=== PATIENT | female | born 1980 | race African-American/Black ===

== ENCOUNTER 2016-06-03 19:02 | Observation (INO) ==
[2016-06-03] MEDS ORDERED: NITROGLYCERIN 2% OINT 1 INCH/GM PACK TOP STA (20:30)
[2016-06-03] MEDS ORDERED: MORPHINE 2 MG/1 ML SYRINGE IV STA (20:30)
[2016-06-03] MEDS ORDERED: ASPIRIN 325 MG TABLET PO STA (20:30)
[2016-06-03] MEDS ORDERED: ALUM/MAG/SIMETH/LIDO VISC 1:1 30 ML BOTTLE PO STA (20:30)
[2016-06-03] MEDS ORDERED: ONDANSETRON 4 MG/2 ML VIAL IV STA (20:30)
[2016-06-03] MEDS ORDERED: SODIUM CHLORIDE 0.9% 500 ML IV STA (20:30)
[2016-06-03] MEDS ORDERED: ASPIRIN 325 MG TABLET ONE (20:39)
[2016-06-03] MEDS ORDERED: ALUM/MAG/SIMETH/LIDO VISC 1:1 30 ML BOTTLE PO ONE (20:39)
[2016-06-03] MEDS ORDERED: MORPHINE 2 MG/1 ML SYRINGE ONE (20:39)
[2016-06-03] MEDS ORDERED: NITROGLYCERIN 2% OINT 1 INCH/GM PACK TOP ONE (20:39)
[2016-06-03] MEDS ORDERED: ONDANSETRON 4 MG/2 ML VIAL ONE (20:39)
--- NOTE | 2016-06-03 21:14 | Emergency Department Note ---
Carleen Herron [place], am scribing for, and in the presence of, Ashish Verma MD 20:17. Bayron Herron Charles R, MD, personally performed the services described in this documentation, ascribed by Ben Durant in my presence, and it is both accurate and complete . Arrival - Arrival Chief Complaint: Non-Specific Stated Complaint: chest pains ED Nursing Triage Note: pt to room c/o reproducable chest wall pain in right side of chest for approx 2 weeks. pt denies going to her regular dr. pt denies injury, Mode of Arrival: Ambulatory Limitations: No Limitations Source: Patient Time Seen by Provider: 06/03/16 19:57 - History of Present Illness HPI Narrative: Pt is a 35 y/o black female presenting to the ED with c/o bilateral reproducible chest wall tenderness and SOB that onset approximately two week ago. Pt states heart disease runs in her family with her mother's first TX at age 39. She states the right side of her chest is worse than the left and she describes the pain as a heaviness. No one movement exacerbates or relieves the discomfort. Pt denies a PMHx and daily medications. She has not seen her PCP. Pt denies fever, chills, nausea, vomiting, diarrhea, abdominal pain, back pain, MONTERO, vertigo, syncope, and dysuria. Pt has a surgical hx of tubal ligation. Consistency: constant Severity: moderate Quality: other (heaviness ) Allergies/Adverse Reactions: Allergies Allergy/AdvReac Type Severity Reaction Status Date / Time No Known Allergies Allergy Unverified 06/03/16 19:10 Home Medications: Home Medications Medication Instructions Recorded Confirmed Type No Known Home Medications [No 06/03/16 06/03/16 History Known Home Medications] Review of System - Review of System 12 point system: reviewed and no additional remarkable complaints except as stated - Review of System Constitutional: Absent: chills, fever, weakness Eyes: Absent: vision change Head/Ears/Nose/Throat: Absent: earache, nasal drainage Respiratory: Absent: cough, respiratory distress, wheezing Cardiovascular: Present: chest pain (bilateral chest wall tenderness; right worse than left ), dyspnea on exertion. Absent: syncope Gastrointestinal: Absent: abdominal pain, nausea, vomiting Genitourinary female: Absent: dysuria Musculoskeletal: Absent: arm pain, back pain, leg pain, neck pain Neurological: Absent: headache, weakness, numbness, confusion, abnormal gait, vertigo Psychiatric: Absent: anxiety Endocrine: Absent: fatigue Hematological/Lymphatic: Absent: easy bleeding Allergic/Immunologic: Absent: facial swelling Medical,Surgical,& Family Hx - Surgical History Reproductive Surgeries: Surgical HX of;: Tubal Ligation (2007) - Social History Smoking Status: Never smoker Frequency of Alcohol Use: Occasionally Type of Drug Use: None Exam Vital Signs: Vital Signs Temperature 99.4 F 06/03/16 19:06 Pulse Rate 84 06/03/16 19:06 Respiratory Rate 16 06/03/16 20:22 Blood Pressure 120/82 06/03/16 19:06 O2 Sat by Pulse Oximetry 99 06/03/16 19:06 - General General appearance: alert, in no apparent distress - Head Head exam: Present: atraumatic, normocephalic, normal inspection - Eye Eye exam: Present: normal appearance, PERRL, EOMI - ENT ENT exam: Present: normal exam, normal oropharynx, mucous membranes moist, TM's normal bilaterally, normal external ear exam - Neck Neck exam: Present: normal inspection, full ROM, trachea midline. Absent: tenderness - Chest Chest inspection: Present: symmetric chest wall rise, tenderness (reproducible right sided chest wall tenderness). Absent: normal inspection - Respiratory Respiratory exam: Present: normal lung sounds bilaterally, other (dyspneic ) - Cardiovascular Cardiovascular exam: Present: regular rate, normal rhythm, normal heart sounds - Abdominal Exam Abdominal exam: Present: soft, normal bowel sounds. Absent: distention, tenderness - Extremities Exam Extremities exam: Present: normal inspection, full ROM, normal capillary refill. Absent: tenderness, pedal edema, calf tenderness - Back Exam Back exam: Present: normal inspection, full ROM. Absent: tenderness - Neurological Exam Neurological exam: Present: alert, oriented X3, CN II-XII intact, normal gait, reflexes normal - Psychiatric Psychiatric exam: Present: normal affect, normal mood - Skin Skin exam: Present: warm, dry, intact, normal color. Absent: rash Course - Consultations Consultation #1: Dr. Bynum will admit patient Time: 23:25 Results - Labs CBC & BMP: 06/03/16 20:47 06/03/16 20:47 Lab Results: I have reviewed the patients labs Disposition Clinical Impression: Chest pain Case discussed with: patient Disposition: Still a Patient Condition: Stable Time of Disposition: 23:26
--- NOTE | 2016-06-03 21:21 | XRay Report ---
XR chest 2V Indication: Chest pain. Chest 2 views: No comparison. The heart size and mediastinal contour are normal. The lungs and pleural spaces are clear. Bones are unremarkable. Impression: Negative chest. PROCEDURE INTERPRETED AT [facility] DEPARTMENT OF RADIOLOGY Final Report Signed by: Kishan Gunderson M.D.
[2016-06-03 21:27] LABS: Basophils % 0.2 % (0.0-0.8); Eosinophils % 0.2 % (0.00-10.9); Hemoglobin 11.7 GM/DL (12.0-16.0); Immature Granulocytes % 0.3 %; Immature Granulocytes Absolute 0.03 #; Lymphocytes % 27.8 % (21.3-54.2); Mean Corpuscular HGB Conc 31.6 GM/DL (32-36); Mean Corpuscular Hemoglobin 27 PG (27-34); Mean Corpuscular Volume 86.7 FL (87-102); Mean Platelet Volume 9.3 FL (9.6-12.0); Monocytes # 0.6 10*3/uL (0.11-0.8); Monocytes % 5.6 % (1.7-12.7); Neutrophils # 7.1 10*3/uL (1.4-7.4); Neutrophils % 65.9 % (38.7-73.9); Platelet Count 397 T/CUMM (130-400); Red Blood Count 4.27 MC/CUMM (3.8-5.5); Red Cell Distribution Width 13.9 % (9.3-17.3); White Blood Count 10.7 T/CUMM (4-12)
[2016-06-03 21:36] LABS: Apearance,Urine Slightly Hazy (Clear); Bilirubin,Urine Negative (Negative); Blood, Urine Large mg/dL (Negative); Glucose,Urine (UA) Negative (Negative); Ketones,Urine 20 mg/dL (Negative); Mucus,Urine Occasional /LPF (Occasional); Nitrite,Urine Negative (Negative); Protein,Urine Negative; RBC,Urine 386 /HPF (0-4); Squamous Epithelial Cell,Urine Occasional /HPF (0-10); Urine Color Yellow (Yellow); Urine Specific Gravity 1.011 (1.001-1.035); Urine Urobilinogen < 2.0 EU/DL (0.2-1.0); WBC,Urine 4 /HPF (0-6)
[2016-06-03 21:43] LABS: Barbiturates Screen,Urine Negative (Negative); Benzodiazepines Screen,Urine Negative (Negative); Cannabinoid Screen,Urine Negative (Negative); Opiate Screen,Urine Negative (Negative); Phencyclidine Screen,Urine Negative (Negative)
[2016-06-03 21:46] LABS: Alanine Aminotransferase 28 U/L (13-56); Albumin 3.8 G/DL (3.4-5.0); Alkaline Phosphatase 82 U/L (45-117); Aspartate Amino Transferase 21 U/L (0-37); Bilirubin,Total < 0.39 MG/DL (0.2-1.0); Blood Urea Nitrogen 7 MG/DL (7-18); Calcium 8.8 MG/DL (8.5-10.1); Glucose 88 MG/DL (74-106); Osmolality,Calculated 277.3 MOS/KG (273-304); Potassium 4.1 MMOL/L (3.5-5.1); Sodium 141 MMOL/L (136-145); Total Protein 7.9 G/DL (6.4-8.3)
--- NOTE | 2016-06-04 00:34 | Hospitalist History & Physical ---
Assessment and Plan (1) Chest pain Status: Acute Assessment and plan: Our plan for this patient #1 admit the patient to a monitored bed #2 serial cardiac enzymes #3 fasting lipid profile #4 cardiology consult Current Visit: Yes History of Present Illness Chief complaint: chest pain History of present illness: Ms. Wilks is a 35 year old female no some if he can past medical history reports that she's been having chest pain about 2 months. Patient describes as a dull ache. This morning the right side of her chest. There is no significant radiation no nausea and no real exertional component with this chest pain. Patient admits that she is under a lot of stress in her job. Patient also reports that her mother at the age of 39 of a massive heart attack. Patient was evaluated in the emergency room with essentially a negative for But given her family history we felt it was more appropriate to admit the patient for further cardiac evaluation. Home Medications Medication Instructions Recorded Confirmed Type No Known Home Medications [No 06/03/16 06/03/16 History Known Home Medications] Allergies Allergy/AdvReac Type Severity Reaction Status Date / Time No Known Allergies Allergy Unverified 06/03/16 19:10 Medical,Surgical,& Family Hx - Medical History Medical History: noncontributory - Surgical History Surgical History: noncontributory Reproductive Surgeries: Surgical HX of;: Tubal Ligation (2007) - Family History Family History: noncontributory - Social History Smoking Status: Never smoker Frequency of Alcohol Use: Occasionally Type of Drug Use: None 12 point system: reviewed and no additional remarkable complaints except as stated Exam - Constitutional Vitals: Period Temp Pulse Resp BP Sys/Perez Pulse Ox Last 24 Hr 86 17 108/70 98 - General General appearance: alert, in no apparent distress - Head Head exam: Present: atraumatic, normocephalic, normal inspection - Eye Eye exam: Present: normal appearance, PERRL, EOMI - ENT ENT exam: Present: normal exam, normal oropharynx, mucous membranes moist, TM's normal bilaterally, normal external ear exam - Neck Neck exam: Present: normal inspection, full ROM, trachea midline. Absent: tenderness - Chest Chest inspection: Present: symmetric chest wall rise, patient does have some tenderness that is reproducible on the right - Respiratory Respiratory exam: Present: normal lung sounds bilaterally - Cardiovascular Cardiovascular exam: Present: regular rate, normal rhythm, normal heart sounds - Abdominal Exam Abdominal exam: Present: soft, normal bowel sounds. Absent: distention, tenderness - Extremities Exam Extremities exam: Present: normal inspection, full ROM, normal capillary refill. Absent: tenderness, pedal edema, calf tenderness - Back Exam Back exam: Present: normal inspection, full ROM. Absent: tenderness - Neurological Exam Neurological exam: Present: alert, oriented X3, CN II-XII intact, normal gait, reflexes normal - Psychiatric Psychiatric exam: Present: normal affect, normal mood - Skin Skin exam: Present: warm, dry, intact, normal color. Results - Labs CBC & BMP: 06/03/16 20:47 06/03/16 20:47
[2016-06-04] MEDS ORDERED: ENOXAPARIN 40 MG/0.4 ML SYRINGE SUBCUT SCH (00:43)
[2016-06-04] MEDS ORDERED: SODIUM CHLORIDE 0.9% 1,000 ML IV SCH (00:43)
[2016-06-04] MEDS ORDERED: ONDANSETRON 4 MG/2 ML VIAL IV PRN (00:43)
[2016-06-04] MEDS: MORPHINE 2 MG/1 ML SYRINGE IV PRN ×2 (00:52→10:39)
[2016-06-04] MEDS: NITROGLYCERIN 2% OINT 1 INCH/GM PACK TOP SCH ×3 (00:53→12:10)
--- NOTE | 2016-06-04 03:08 | EKG Report ---
Stationary ECG Study [facility] Test Date: 06/04/2016 3:07:33 AM Pat Name: KAEL GALLEGOS Department: Room: 119 Gender: F Senior Administrative Support: GERHARD : 1980 Requested by: Ashish Chew Order Number: [id number] Reading MD: OREN PURDY Intervals [place] Rate: 71 P: 59 WA: 148 QRS: 45 QRSD: 94 T: 43 QT: 402 QTc: 425 Interpretive Statements SINUS RHYTHM WITH SINUS ARRHYTHMIA BASELINE ARTIFACT Electronically Signed On 06-04-16 19:07:58 [employer]PERVISOR REMELT by OREN PURDY [email or web address]
[2016-06-04 04:17] LABS: Basophils % 0.1 % (0.0-0.8); Eosinophils % 0.6 % (0.00-10.9); Hematocrit 34.1 VOL% (35.7-47.0); Hemoglobin 10.4 GM/DL (12.0-16.0); Immature Granulocytes % 0.1 %; Immature Granulocytes Absolute 0.01 #; Lymphocytes # 2.5 10*3/uL (1.4-4.0); Lymphocytes % 36.7 % (21.3-54.2); Mean Corpuscular HGB Conc 30.5 GM/DL (32-36); Mean Corpuscular Hemoglobin 28 PG (27-34); Mean Corpuscular Volume 92.4 FL (87-102); Mean Platelet Volume 9.9 FL (9.6-12.0); Monocytes # 0.5 10*3/uL (0.11-0.8); Neutrophils # 3.8 10*3/uL (1.4-7.4); Neutrophils % 55.5 % (38.7-73.9); Platelet Count 291 T/CUMM (130-400); Red Blood Count 3.69 MC/CUMM (3.8-5.5); Red Cell Distribution Width 14.2 % (9.3-17.3); White Blood Count 6.9 T/CUMM (4-12)
--- NOTE | 2016-06-04 07:24 | XRay Report ---
Referring Physician: Ashish Verma Exam: XR chest 1V portable Date: June 04, 2016 at 3:53 AM Reason: Shortness of breath Comparison: Chest 2 views June 03, 2016 Findings: The cardiac silhouette is normal in size. No focal consolidation, pneumothorax or pleural effusion is identified. No acute osseous process is seen. Impression: No acute cardiopulmonary process is identified. PROCEDURE INTERPRETED AT [facility] DEPARTMENT OF RADIOLOGY Final Report Signed by: Dr. Uriel Mcmahan [facility]
--- NOTE | 2016-06-04 07:50 | Cardiology Consult Note ---
<Sue Clayton E - Last Filed: 06/04/16 07:46> Assessment and Plan - Time spent with patient Time spent with patient: Less than 30 minutes (1) Chest pain Status: Acute Assessment and plan: Chest pain has been relieved at this time. We will schedule stress testing this morning. She does not have hypertension, unknown lipid status we will check a fasting lipid profile this morning. Current Visit: Yes History of Present Illness - Data of Consult Patient: new to practice Consult date: 06/04/16 Requesting Physician: Fátima Green - Consult Narrative Reason for consult: chest pain History of present illness: Ms. Wilks is a 35 year old female who has never been followed by cardiology and will be seen this morning by Dr. Chamberlain. Risk factors include: Family history of premature coronary artery disease. For the past several months, patient has been experiencing chest discomfort located primarily in the right chest area. She describes as tightness without radiation. This has been occurring at random, lasting various amounts of time from a few seconds to a few minutes and relieved at random. Yesterday however, patient's chest discomfort on the right side radiated to the left chest, under her breasts and for her axilla causing shortness of breath. She was walking when this occurred. She states that it lasted approximately 30 minutes and was relieved when Nitropaste was applied to the chest area. She can identify no aggravating factors including pushing, pulling, lifting or walking. She has noticed over the past several months that she has become more dyspneic on exertion walking shorter distances. She rates the discomfort as a 7 on a scale of 1-10. She is currently chest pain-free. She tells me her mother at age 39 from myocardial infarction. Her mother was not diabetic, hypertensive, tobacco abuser or substance abuser. ASSESSMENT/PLAN: 1. CHEST PAIN - currently chest pain-free. She has few risk factors for coronary disease. Will discuss with Dr. Chamberlain and await recommendations to include further cardiac workup such as stress testing and/or echocardiogram. FLP has been ordered (unknown lipid status). CC: Fátima Green MD - Home Medications and Allergies Home Medications: Home Medications Medication Instructions Recorded Confirmed Type No Known Home Medications [No 06/03/16 06/03/16 History Known Home Medications] Allergies/Adverse Reactions: Allergies Allergy/AdvReac Type Severity Reaction Status Date / Time No Known Allergies Allergy Unverified 06/03/16 19:10 Review of systems: REVIEW OF SYSTEMS: - Constitutional Constitutional: Absent: syncope, anorexia, fatigue, night sweats - EENT Eyes: Absent: blurry vision, loss of vision, diplopia Ears: Absent: decreased hearing, ear pain, ear discharge - Cardiovascular Cardiovascular: Present: chest pain with exertion and at rest. Dyspnea on exertion. Denies edema, palpitations. Absent: chest pain with deep breath, claudication, - Respiratory Respiratory: Present: BANSAL denies cough. Absent: wheezing, hemoptysis, change in phlegm color - Gastrointestinal Gastrointestinal: Denies constipation or abdominal pain. She is on her menstrual cycle right now. She's had a tubal ligation. Absent: abdominal pain , hematemesis, hematochezia, melena, change in bowel habits, nausea - Genitourinary Genitourinary: Absent: difficulty urinating, dysuria, urinary hesitancy, flank pain - Musculoskeletal Musculoskeletal: Present: back pain Absent: joint swelling, muscle cramps, muscle weakness - Neurological Neurological: Present: normal gait without frequent falls. Absent: dizziness, hemiparesis - Psychiatric Psychiatric: Absent: anxiety, depression, difficulty concentrating - Endocrine Endocrine: Absent: cold intolerance, heat intolerance, polyuria, polyphagia, polydipsia - Hematologic/Lymphatic Hematologic/Lymphatic: Present: easy bruising. Absent: easy bleeding, easy bruisability -Integumentary Integumentary: Absent: lesions, rashes, skin breakdown Medical,Surgical,& Family Hx - Medical History Cardio: No history of: CAD, Hypertension, LA HEENT: History of: Ear Problem (right ear infection currently has them frequently) Gastrointestinal: No history of: GERD - Surgical History HEENT Surgeries: Patient denies: Tonsilectomy & Adenoidectomy Reproductive Surgeries: Surgical HX of;: Tubal Ligation (2007) - Family History Family History: Reports;: Family Diabetes (father, siblings), Family Heart Disease (heart disease), Family Hypertension (father) - Social History Smoking Status: Never smoker Have you smoked in the last 12 months: No Frequency of Alcohol Use: Occasionally Type of Drug Use: None Physical Examination Vital Signs Temp Pulse Resp BP Pulse Ox 99.4 F 84 16 120/82 99 06/03/16 19:06 06/03/16 19:06 02/01/17 19:06 06/03/16 19:06 06/03/16 19:06 General: Appears well with no apparent distress. Pleasant and cooperative. Appears comfortable. HEENT: PERRL, normocephalic, atraumatic. Mucous membranes moist. No jaundice noted. Conjunctiva moist and clear, sclerae anicteric Neck: No JVD/HJR, no thyromegaly or lymphadenopathy noted. No carotid bruit appreciated Cardiac: Regular rate and rhythm. No murmur rub or gallop. Lungs: Clear to auscultation without accessory muscle use to assist the respiratory pattern. Not requiring oxygen Abdomen: Soft, bowel sounds normoactive. Nontender and nondistended. No abdominal bruit or thrill noted. No masses noted. Musculoskeletal: No fluid collection. Decreased range of motion is noted. Extremities: No clubbing, cyanosis noted. No edema noted. Upper extremity pulses 2+. Lower extremity pulses 2+. Capillary refill less than 3 seconds. Skin: No unusual lesions or rashes. No skin breakdown appreciated. Neuro: Awake, alert and oriented 3. Moves all extremities well without hemiparesis or paralysis. No essential tremor is appreciated. Result/EKG - Labs CBC & BMP: 06/04/16 02:19 06/03/16 20:47 Lab Results: I have reviewed the past 24 hour labs Labs: Laboratory Results - last 24 hr 06/04/16 06/04/16 06/04/16 02:19 02:19 02:19 WBC 6.9 D RBC 3.69 L Hgb 10.4 L Hct 34.1 L MCV 92.4 MCH 28 MCHC 30.5 L RDW 14.2 Plt Count 291 D MPV 9.9 Neut % (Auto) 55.5 Lymph % (Auto) 36.7 [place] % (Auto) 7.0 Eos % (Auto) 0.6 Baso % (Auto) 0.1 Neut # (Auto) 3.8 Lymph # (Auto) 2.5 [place] # (Auto) 0.5 Eos # (Auto) 0.0 Baso # (Auto) 0.0 Immature Gran % 0.1 Nucleated RBC % 0.0 Immature Gran # 0.01 Nucleated RBCs # 0.00 Troponin I < 0.015 Free T4 1.32 - Diagnostic Findings Procedure: Chest x-ray: report reviewed by nv - EKG EKG results: interpreted by nv EKG shows: sinus rhythm <Ashok Chamberlain - Last Filed: 06/04/16 08:09> History of Present Illness - Consult Narrative History of present illness: Cardiology addendum. Chart reviewed and patient examined. Nurse Jihan present for the full discussion. 35-year-old woman had atypical chest pain while at work after having a stressful confrontation. 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 She describes a job as stressful. EKG is normal. Chest x-ray is normal. Troponin is negative 2. There is no history of exertional angina. Lifetime non-smoker. Rare social drinker only. No history of diabetes or hypertension. Denies recreational drug use. Urine drug screen negative. Father is 73 and has hypertension. Mother at age 39 of a reported heart attack, but circumstances are unclear. Exam normal. Plan Lipid panel Echo Doppler Exercise cardiac stress test today DC Nitropaste. She has nitrate headache CC: Fátima Green MD Physical Examination Vital Signs Temp Pulse Resp BP Pulse Ox 99.4 F 84 16 120/82 99 06/03/16 19:06 06/03/16 19:06 06/03/16 19:06 06/03/16 19:06 06/03/16 19:06 Result/EKG - Labs CBC & BMP: 06/04/16 02:19 06/03/16 20:47 Labs: Laboratory Results - last 24 hr 06/04/16 06/04/16 06/04/16 02:19 02:19 02:19 WBC 6.9 D RBC 3.69 L Hgb 10.4 L Hct 34.1 L MCV 92.4 MCH 28 MCHC 30.5 L RDW 14.2 Plt Count 291 D MPV 9.9 Neut % (Auto) 55.5 Lymph % (Auto) 36.7 [place] % (Auto) 7.0 Eos % (Auto) 0.6 Baso % (Auto) 0.1 Neut # (Auto) 3.8 Lymph # (Auto) 2.5 [place] # (Auto) 0.5 Eos # (Auto) 0.0 Baso # (Auto) 0.0 Immature Gran % 0.1 Nucleated RBC % 0.0 Immature Gran # 0.01 Nucleated RBCs # 0.00 Troponin I < 0.015 Free T4 1.32
[2016-06-04 08:34] LABS: Albumin 3.1 G/DL (3.4-5.0); Bilirubin,Total 1.2 MG/DL (0.2-1.0); Calcium 8.3 MG/DL (8.5-10.1); Potassium 3.9 MMOL/L (3.5-5.1); Thyroid Stimulating Hormone 0.786 uIU/ml (0.358-3.74); Total Protein 6.3 G/DL (6.4-8.3); VLDL CHOLESTEROL 11.2 MG/DL
[2016-06-04] MEDS ORDERED: ASPIRIN EC 325 MG TABLET PO SCH (09:00)
[2016-06-04] MEDS ORDERED: METOPROLOL TARTRATE 25 MG TABLET PO SCH (09:00)
[2016-06-04] MEDS ORDERED: PANTOPRAZOLE 40 MG TABLET PO SCH (09:00)
--- NOTE | 2016-06-04 09:25 | Event Note ---
Patient udnerwent Cardiolyte stress testing, achieved THR without complaints of chest pain, heaviness or tightness. Good exercise tolerance. No EKG changes, no arrythmia noted. Now to nuclear medicine to complete final scan. Dr. Chamberlain to read, interpret and advise.
--- NOTE | 2016-06-04 13:55 | Discharge Summary ---
Hospital Course - Hospital Course Hospital Course: 35-year-old -[place] female presents with complaints of chest pain for the past 2 months that she describes as a dull ache. She has been under a lot of stress from work and is concerned that she may be having a heart attack. Her serial troponins were negative. Her total cholesterol is 153 which is excellent. She is mildly anemic due to heavy periods. Chest x-ray shows nothing acute. EKG shows normal sinus rhythm with no ST changes. Stress test was negative discharge home. - Time spent with patient Time with patient DS: Less than 30 minutes Discharge Plan - Discharge Data Disposition: Disch To Home/Self Care Condition at Discharge: Stable Discharge Diet: heart healthy Activity: resume usual activities as tolerated Hygiene: no restrictions Weight Bearing at Discharge: full weight bearing Driving: no restrictions - Follow Up or Referral Follow Up: roque, [Other] - 2 Weeks - Forms/Instructions Additional Discharge Instructions: Can discharge home if stress test negative. Exam - Constitutional Vitals: Period Temp Pulse Resp BP Sys/Perez Pulse Ox Last 24 Hr 97.9 F-98.4 F 67-86 12-18 99-122/53-70 98-100 General appearance: normal weight, no acute distress - Respiratory Respiratory exam: Present: clear to auscultation bilaterally. Absent: rhonchi, wheezes - Cardiovascular Cardiovascular exam: Present: regular rate and rhythm. Absent: systolic murmur - GI/Abdominal GI/Abdominal exam: Present: normal bowel sounds, soft. Absent: tenderness - Extremities Exam Extremities exam: Present: normal inspection, normal capillary refill - Neurological Exam Neurological exam: Present: alert, oriented X3 Discharge Results Procedures and tests throughout hospitalization: Pending Orders 06/04/16 01:20 MRSA Surveillence, Inf Control Stat 06/04/16 07:57 NM yuridia perf SPECT rest or str Routine Labs on day of discharge: Labs from last 24 hours 06/04/16 06/04/16 06/04/16 07:44 07:44 02:19 WBC RBC Hgb Hct MCV MCH MCHC RDW Plt Count MPV Neut % (Auto) Lymph % (Auto) [place] % (Auto) Eos % (Auto) Baso % (Auto) Neut # (Auto) Lymph # (Auto) [place] # (Auto) Eos # (Auto) Baso # (Auto) Immature Gran % Nucleated RBC % Immature Gran # Nucleated RBCs # Sodium 143 Potassium 3.9 Chloride 108 H Carbon Dioxide 25 Anion Gap 13.9 BUN 6 L Creatinine 0.70 GFR Calculation 149 BUN/Creatinine Ratio 8.00 Glucose 91 Calculated Osmolality 282.0 Calcium 8.3 L Magnesium 2.0 Total Bilirubin 1.20 H AST 16 ALT 22 Alkaline Phosphatase 70 Troponin I B-Natriuretic Peptide 18 Total Protein 6.3 L Albumin 3.1 L Globulin 3.2 Albumin/Globulin Ratio 0.9 L Triglycerides 56 Cholesterol 153 LDL Cholesterol 90.0 VLDL Cholesterol 11.2 HDL Cholesterol 51 Heart Disease Risk Ratio 3.00 Free T4 1.32 TSH 3rd Generation 0.786 06/04/16 06/04/16 02:19 02:19 WBC 6.9 D RBC 3.69 L Hgb 10.4 L Hct 34.1 L MCV 92.4 MCH 28 MCHC 30.5 L RDW 14.2 Plt Count 291 D MPV 9.9 Neut % (Auto) 55.5 Lymph % (Auto) 36.7 [place] % (Auto) 7.0 Eos % (Auto) 0.6 Baso % (Auto) 0.1 Neut # (Auto) 3.8 Lymph # (Auto) 2.5 [place] # (Auto) 0.5 Eos # (Auto) 0.0 Baso # (Auto) 0.0 Immature Gran % 0.1 Nucleated RBC % 0.0 Immature Gran # 0.01 Nucleated RBCs # 0.00 Sodium Potassium Chloride Carbon Dioxide Anion Gap BUN Creatinine GFR Calculation BUN/Creatinine Ratio Glucose Calculated Osmolality Calcium Magnesium Total Bilirubin AST ALT Alkaline Phosphatase Troponin I < 0.015 B-Natriuretic Peptide Total Protein Albumin Globulin Albumin/Globulin Ratio Triglycerides Cholesterol LDL Cholesterol VLDL Cholesterol HDL Cholesterol Heart Disease Risk Ratio Free T4 TSH 3rd Generation DS: Provider Date of admission: 06/03/16 23:26 Primary care physician: . No PCP Attending physician on admission: Fátima Green MD Consults: 06/04/16 00:43 Consult to Physician [CONS] Routine Comment: high risk family history and chest pain Consulting Provider: Cardiology - [facility] Discharging clinician: Fátima Green MD
[2016-06-04 16:04] VITALS: BP 111/69
--- NOTE | 2016-06-04 17:50 | Nuclear Medicine Report ---
EXERCISE CARDIOLITE GATED SPECT PERFUSION STUDY DATE: 06/05/2016 PROCEDURE: EXERCISE CARDIOLITE GATED SPECT PERFUSION STUDY INITIAL IMPRESSION: 1. A 35-YEAR-OLD WOMAN WITH ATYPICAL CHEST PAIN. 2. ABNORMAL EKG. FINAL IMPRESSION: NORMAL EXERCISE CARDIOLITE GATED SPECT PERFUSION STUDY. I. DESCRIPTION OF PROCEDURE: The patient received 10.0 mCi of Technetium 99m Cardiolite IV, and re st imaging was obtained in the routine manner 20 minutes later. The patient then walked for 7 minut on the standard Qamar protocol and achieved a peak heart rate of 166, which is 90% of her predict ed maximal heart rate. At peak exercise, 30.0 mCi of Technetium 99m Cardiolite IV was injected and stress imaging was obtained in the routine manner 20 minutes later. Serial electrocardiograms were performed. The initial blood pressure was 122/79 and it was 170/75 immediately post exercise. II. RESULTS: The patient had no chest pain or arrhythmias and the test was terminated due to short ness of breath and fatigue. The resting EKG demonstrates normal sinus rhythm with poor R-wave progr ession across the precordium, incomplete right bundle branch block, and ST-T-wave changes. With exe rcise, no diagnostic EKG changes occurred. Rare PVCs noted. Tomographic imaging demonstrates homogenous uptake of radioisotope in all segments. There is no lonnie dence for ischemia or scar. Gated SPECT imaging demonstrates normal wall motion and thickening in a ll segments. The calculated ejection fraction is 65%. III. FINAL IMPRESSION: 1. CLINICALLY AND ELECTROCARDIOGRAPHICALLY NEGATIVE. 2. GOOD WORK CAPACITY. THE PATIENT ACHIEVED 7.9 METS. 3. SCINTIGRAPHICALLY NORMAL PERFUSION STUDY. IV. DISPOSITION: The patient should be reassured regarding the lack of any evidence for significan t coronary artery disease at this time. She had no chest pain or diagnostic EKG changes, and tomogr aphic imaging is normal. In addition, ventricular function is excellent with ejection fraction of 6 5%. This is a low-risk scan. Continued medical therapy and risk factor modification recommended. Procedure performed and interpreted at [facility] Department of Radiology.
--- NOTE | 2016-06-05 09:38 | ECHO Report ---
Lilly Wilks Exam Date: 06/04/2016 09:56 Referring Physician: Technologist: Lois YAP Age: 35 Ht (in): Wt (lb): Gender: F Exam Location: [facility] Echo Indications: chest pain BP: / HR: Rhythm: Sinus Technical Quality: Good IMPRESSIONS Normal left ventricular size and systolic function, left ventricular ejection fraction is estimated at 55-60%. Normal right ventricular size. Normal right atrial size. Normal left atrial size. Morphologically normal mitral valve.No MR. Trileaflet aortic valve. Trace aortic valve regurgitation. Morphologically normal tricuspid valve. [id number]. Morphologically normal pulmonic valve. No pericardial effusion. Normal size aortic root and proximal ascending aorta. MEASUREMENTS (Male / Female) Normal Values 2D ECHO LV Diastolic Diameter PLAX 4.2 cm 4.2 - 5.9 / 3.9 - 5.3 cm LV Systolic Diameter PLAX 3.0 cm LV Fractional Shortening PLAX 26.9 % IVS Diastolic Thickness 0.8 cm 0.6 - 1.0 / 0.6 - 0.9 cm LVPW Diastolic Thickness 1.1 cm 0.6 - 1.0 / 0.6 - 0.9 cm RV Internal Dim ED PLAX 3.4 cm Aortic Root Diameter 2.9 cm DOPPLER TR Peak Velocity 223.0 cm/s TR Peak Gradient 19.9 mmHg FINDINGS Left Ventricle Normal left ventricular size and systolic function, left ventricular ejection fraction is estimated at 55-60%. Right Ventricle Normal right ventricular size. Right Atrium Normal right atrial size. Left Atrium Normal left atrial size. Mitral Valve Morphologically normal mitral valve. Aortic Valve Trileaflet aortic valve. Trace aortic valve regurgitation. Tricuspid Valve Morphologically normal tricuspid valve. [id number]. Pulmonic Valve Morphologically normal pulmonic valve. Pericardium No pericardial effusion. Aorta Normal size aortic root and proximal ascending aorta. Kirk Chamberlain (Electronically Signed) Final Date: 04 June 2016 17:37
== END 2016-06-04 17:56 | disposition home or self-care (01) ==
LOC: N.EDINP 19:02 → N.ED 19:02 → N.CC 23:50 → N.TELES 06-04 14:46
PROVIDERS: ADMIT Internal Medicine; ATTEND Internal Medicine

== ENCOUNTER 2018-01-04 13:27 | Observation (INO) ==
[2018-01-04 14:10] LABS: Basophils % 0.3 % (0.0-0.8); Eosinophils # 0.1 10*3/uL (0.0-0.87); Eosinophils % 1.1 % (0.00-10.9); Hematocrit 39.4 VOL% (35.7-47.0); Hemoglobin 12.5 GM/DL (12.0-16.0); Immature Granulocytes % 0.1 %; Immature Granulocytes Absolute 0.01 #; Lymphocytes # 2.4 10*3/uL (1.4-4.0); Lymphocytes % 34.2 % (21.3-54.2); Mean Corpuscular HGB Conc 31.7 GM/DL (32-36); Mean Corpuscular Hemoglobin 28 PG (27-34); Mean Corpuscular Volume 88.7 FL (87-102); Mean Platelet Volume 9.4 FL (9.6-12.0); Monocytes # 0.6 10*3/uL (0.11-0.8); Monocytes % 8.9 % (1.7-12.7); Neutrophils # 3.9 10*3/uL (1.4-7.4); Neutrophils % 55.4 % (38.7-73.9); Platelet Count 351 T/CUMM (130-400); Red Blood Count 4.44 MC/CUMM (3.8-5.5); Red Cell Distribution Width 13.7 % (9.3-17.3); White Blood Count 7.1 T/CUMM (4-12)
[2018-01-04 14:32] LABS: Apearance,Urine Slightly Hazy (Clear); Bacteria,Urine Occasional /HPF (Few); Bilirubin,Urine Negative (Negative); Blood, Urine Negative (Negative); Glucose,Urine (UA) Negative (Negative); Ketones,Urine Negative (Negative); Mucus,Urine Occasional /LPF (Occasional); Nitrite,Urine Negative (Negative); Protein,Urine Negative; RBC,Urine 1 /HPF (0-4); Squamous Epithelial Cell,Urine Occasional /HPF (0-10); Urine Color Yellow (Yellow); Urine Specific Gravity 1.008 (1.001-1.035); Urine Urobilinogen < 2.0 EU/DL (0.2-1.0); WBC,Urine 1 /HPF (0-6)
[2018-01-04 14:37] LABS: Albumin 3.6 G/DL (3.4-5.0); Bilirubin,Total 0.4 MG/DL (0.2-1.0); Calcium 9.1 MG/DL (8.5-10.1); Osmolality,Calculated 278.4 MOS/KG (273-304); Total Protein 7.7 G/DL (6.4-8.3)
[2018-01-04] MEDS ORDERED: ONDANSETRON 4 MG/2 ML VIAL IV STA (16:16)
[2018-01-04] MEDS ORDERED: ALBUTEROL/IPRATROPIUM 3 ML NEB RESP TX STA (16:16)
[2018-01-04] MEDS ORDERED: MORPHINE 4 MG/1 ML VIAL IV STA (16:16)
[2018-01-04] MEDS ORDERED: SODIUM CHLORIDE 0.9% 500 ML IV STA (16:17)
[2018-01-04] MEDS ORDERED: ONDANSETRON 4 MG/2 ML VIAL IV PRN (21:19)
[2018-01-04] MEDS ORDERED: PROMETHAZINE 25 MG/1 ML VIAL IM PRN (21:19)
[2018-01-04] MEDS ORDERED: ACETAMINOPHEN 325 MG TABLET PO PRN (21:19)
[2018-01-04] MEDS ORDERED: HYDROmorphone 2 MG/1 ML VIAL IV PRN (21:19)
[2018-01-04] MEDS: LACTATED RINGERS 1,000 ML IV SCH (21:57)
[2018-01-04] MEDS: PIPERACILLIN/TAZOBACTAM 3,375 MG in SODIUM CHLORIDE 0.9% 100 ML IV SCH (21:58)
[2018-01-05] MEDS: LACTATED RINGERS 1,000 ML IV SCH (05:55)
[2018-01-05] MEDS ORDERED: TISSUE ADHESIVE 1 EACH APPLICATOR TOP ONE (07:26)
[2018-01-05] MEDS ORDERED: LIDOCAINE 1%/EPI INJ 20 ML VIAL ONE (07:27)
[2018-01-05] MEDS: PIPERACILLIN/TAZOBACTAM 3,375 MG in SODIUM CHLORIDE 0.9% 100 ML IV SCH (07:54)
[2018-01-05] MEDS ORDERED: MIDAZOLAM 2 MG/2 ML VIAL ONE (08:49)
[2018-01-05] MEDS ORDERED: fentaNYL 100 MCG/2 ML VIAL ONE (08:49)
[2018-01-05] MEDS ORDERED: PROPOFOL 200 MG/20 ML VIAL IV ONE (08:49)
[2018-01-05] MEDS ORDERED: SUCCINYLCHOLINE 200 MG/10 ML VIAL ONE (08:50)
[2018-01-05] MEDS ORDERED: DEXAMETHASONE 10 MG/1 ML VIAL ONE (08:50)
[2018-01-05] MEDS ORDERED: LACTATED RINGERS 1,000 ML IV ONE (08:50)
[2018-01-05] MEDS ORDERED: ACETAMINOPHEN 1,000 MG/100 ML VIAL IV ONE (08:50)
[2018-01-05] MEDS ORDERED: ROCURONIUM 100 MG/10 ML VIAL IV ONE (08:50)
[2018-01-05] MEDS ORDERED: ONDANSETRON 4 MG/2 ML VIAL ONE (08:50)
[2018-01-05] MEDS ORDERED: ONDANSETRON 4 MG/2 ML VIAL IV PRN (08:56)
[2018-01-05] MEDS: HYDROmorphone 2 MG/1 ML VIAL IV PRN ×3 (09:00→09:17)
[2018-01-05] MEDS ORDERED: LACTATED RINGERS 1,000 ML IV SCH (09:00)
[2018-01-05] MEDS ORDERED: PANTOPRAZOLE 40 MG TABLET PO SCH (09:00)
[2018-01-05] MEDS ORDERED: SEVOFLURANE 1 UNIT/15 MINUTE INH ONE (10:59)
[2018-01-05] MEDS ORDERED: GLYCOPYRROLATE 0.4 MG/2 ML VIAL ONE (10:59)
[2018-01-05] MEDS ORDERED: NEOSTIGMINE 10 MG/10 ML VIAL ONE (10:59)
[2018-01-05] MEDS ORDERED: ENOXAPARIN 40 MG/0.4 ML SYRINGE SUBCUT SCH (12:00)
[2018-01-05 15:55] VITALS: BP 112/68
== END 2018-01-05 15:30 | disposition home or self-care (01) ==
LOC: N.ED 13:27 → N.EDINP 13:27 → N.5E 20:23
PROVIDERS: ADMIT Surgery; ATTEND Surgery
PROC: LAPCHOL (2018-01-05 07:39)